=== PATIENT | male | born 1945 | race Asian ===

== ENCOUNTER 2017-05-21 07:44 | Emergency (ER) | payer MEDICARE, MEDICAID ==
[~2017-05-21] VITALS: Ht 165.1 cm; Wt 71.8 kg
[2017-05-21] MEDS ORDERED: LOSA25TA21 PO (07:55)
[2017-05-21] MEDS ORDERED: VERA120 PO (07:55)
[2017-05-21] MEDS ORDERED: METF850T2 PO (07:55)
[2017-05-21 07:57] LABS: GLUCOSE,POINT OF CARE 92 MG/DL (70-110)
[2017-05-21 09:57] VITALS: BP 128/81
== END 2017-05-21 10:28 | disposition home or self-care (01) ==
LOC: EMS 07:46
DX: R76.11 Nonspecific reaction to tuberculin skin test without active tuberculosis (principal); I51.7 Cardiomegaly; E11.9 Type 2 diabetes mellitus without complications; I10 Essential (primary) hypertension; E78.00 Pure hypercholesterolemia, unspecified
CPT/HCPCS: 82962; 99283

== ENCOUNTER → 2023-01-07 | Outpatient (CLI) | payer MEDICARE, MEDICAID ==
[~2023-01-07] MED LIST: LOSA-381 PO; METF-445 PO; VERA120T21 PO
== END | disposition home or self-care (01) ==
LOC: RADMN 12:08
PROVIDERS: ATTEND Rehabilitation Practitioner
DX: S90.121A Contusion of right lesser toe(s) without damage to nail, initial encounter (principal); M79.89 Other specified soft tissue disorders; X58.XXXA Exposure to other specified factors, initial encounter; Y93.89 Activity, other specified; Y92.89 Other specified places as the place of occurrence of the external cause; Y99.8 Other external cause status
CPT/HCPCS: 73660-TC